=== PATIENT | female | born 1950 | race Caucasian/White ===

== ENCOUNTER → 2017-04-07 | Outpatient (CLI) | payer OTHER ==
[~2017-04-07] MED LIST: ASPI-496 PO; CALC-75 PO; CETI10TA18 PO; LEVO125T PO; LISI-170 PO; MAGN300C PO; METO25TA91 PO; MULT1CAP19 PO; NIAC10002 PO; OMEG10007 PO; OMNIPAQUE 350 MG/ML, 100ML BOTTLE ONE; PANT40TA3 PO; PRAV40TA PO
== END ==
LOC: CFH 07:48
PROVIDERS: ATTEND Nurse Practitioner Primary Care
DX: K76.0 Fatty (change of) liver, not elsewhere classified (principal); Z90.49 Acquired absence of other specified parts of digestive tract
CPT/HCPCS: 74177; 76700; 82565; Q9967